=== PATIENT | female | born 2000 | race Caucasian/White ===

== ENCOUNTER 2018-04-09 11:56 | Emergency (ER) | payer BC, SELFPAY ==
[2018-04-09 12:20] VITALS: BP 128/76; PULSE 84; RESP 16; TEMP 36.6; O2SAT 100
[2018-04-09 12:38] LABS: Bilirubin Negative (Negative); Blood Small (Negative); Clarity Clear; Glucose Negative (Negative); Ketones Negative (Negative); Leukocyte Esterase Moderate (Negative); Nitrite Negative (Negative); Urobilinogen 0.2 EU/dL (Up TO 0.2)
[2018-04-09 12:55] LABS: Bacteria Few HPF (Negative); Crystals Negative HPF (Negative); Epithelial Cells Few HPF (Negative); Mucus Negative (Negative)
[2018-04-09 12:56] LABS: C & S Indicated? Yes; WBC >50 HPF (0-5)
--- NOTE | 2018-04-09 13:16 | ED.GENADUL_ITS ---
Discharge Plan Disposition Patient Disposition: HOME Condition: Good Discharge Details Chief Complaint: Urinary Clinical Impression: UTI (urinary tract infection) Primary Care Provider: Jamila,Local ED Provider: John Beck Home Meds and New Rx's Prescriptions: New cephalexin [Keflex] 500 mg capsule 500 mg PO BID 7 Days Qty: 14 RF: 0 No Action Azo Urinary Pain Relief 97.5 mg Tablet RF: 0 naproxen sodium [Aleve] 220 mg Capsule 220 mg PO BID-TID PRNRF: 0 Azo Urinary Tract Health 95 mg/250 mg-30 mg-15 mg Tablet RF: 0 Discharge Instructions Instructions: Urinary Tract Infection in Women (ED) Additional Instructions: Please take medication as directed. If you notice any worsening of your symptoms, or any new symptoms such as vomiting, diarrhea, fever, chills, shortness of breath, chest pain, numbness, weakness, or fainting , please return immediately to the emergency department for reevaluation. Please follow up with your primary care provider as soon as possible for reassessment and reevaluation. As always, it was a pleasure participating in your medical care today. Medical Decision Making This is a very pleasant 17-year-old female who presents for evaluation of 7 days of burning, and increase in urinary frequency. She states that her signs and symptoms feel like her previous UTIs. Clinical exam shows no signs of concerning abdominal pain or tenderness, no evidence of an acute surgical abdomen. No clinical evidence of pyelonephritis with no fever, tachycardia, or flank pain or tenderness. Urinalysis shows evidence of UTI. We will give Keflex she has no antibiotic allergies. We discussed red flags which return the importance of close follow-up. We will also give Lidoderm patch prescription on an outpatient basis for chronic lower back pain, which on my clinical exam is unrelated to her urinary symptoms. No signs of cauda equina syndrome or other abnormalities. No clinical evidence requiring or necessitating imaging at this time with no history of trauma or other abnormality. No history of IV or illicit drug use. I have extensively reviewed the treatment plan and discharge instructions with the patient. I have addressed all patient concerns at this time. The patient was made aware of what symptoms to monitor for that would warrant a return to the emergency department. Discussed the plan with the patient, they demonstrate verbal understanding and agreement with our assessment and plan at this time. HPI General Date/Time Provider Initiated Documentation: 04/09/18 12:29 . HPI Narrative: This is a very pleasant 17-year-old female with no significant past medical history who presents today for evaluation of dysuria for the last week. She has burning and increased urinary frequency. She denies any flank pain or tenderness, she denies any hematuria. She denies any history of STDs or vaginal discharge. She denies any concerning red flags of fever or chills. She has had a urinary tract infections before she states that this feels just like this. She denies any history of kidney stones she has not been on any antibiotics recently. She has no history of diabetes she does admit to a separate unrelated issue of chronic lower back pain, but states that this is going on well before any of your urinary issues. She denies any numbness tingling or weakness of her lower extremities. She denies any bowel or bladder incontinence. She has no other complaints modifying factors at this time. She denies any IV illicit drug use or pertinent family history. Related Data Home Medications Medication Instructions Recorded Confirmed cephalexin [Keflex] 500 mg PO BID 7 Days #14 cap 04/09/18 naproxen sodium [Aleve] 220 mg PO BID-TID PRN 04/09/18 04/09/18 [id number] 04/09/18 [Azo Urinary Tract Health] phenazopyridine [Azo Urinary Pain 04/09/18 Relief] Previous Rx's Medication Instructions Recorded cephalexin [Keflex] 500 mg PO BID 7 Days #14 cap 04/09/18 Allergies Allergy/AdvReac Type Severity Reaction Status Date / Time No Known Allergies Allergy Unverified 04/09/18 12:19 General Stated Complaint: Urinary KARIN: 4 Review of Systems Review of Systems All systems reviewed & are unremarkable except as noted in HPI and below Exam Narrative Exam Narrative: 1.Const: Well-nourished, Well-developed, appearing stated age 2.Eyes: PERRL, no conjunctival injection, and symmetrical lids. 3.ENT: Atraumatic external nose and ears. Moist MM. Neck: Symmetric, trachea midline, No thyromegaly. 4.CVS: +S1/S2, No murmurs or gallops. Peripheral pulses 2+ and equal in all extremities. Brisk capillary refill in all extremities. 5.RESP: Unlabored respiratory effort. Clear to auscultation bilaterally. No wheezes rales or rhonchi 6.GI: Soft, Nontender/Nondistended, No hepatosplenomegaly. No guarding or rebound. No pain at McBurney's point, negative Last sign, no significant supr apubic tenderness. No flank or CVA tenderness on percussion. No midline thoracic lumbar or cervical spine tenderness. 7.MSK: Normocephalic/Atraumatic, Extremities w/o deformity or ttp No cyanosis or clubbing, Normal movement of all extremities. No midline tenderness to palpation over the CTLS spine. Normal ROM in flexion, extension, side bend, and rotation. Patient has +5 out of 5 strength in the lower extremities in dorsiflexion and plantarflexion, knee flexion and extension, hip flexion and extension. There is +2 over 2 dorsalis pedis pulses bilaterally. There is normal sensation to the skin with light touch at the foot, knee, and hip. Normal saddle sensation. Good sensation over the deep sural nerve area bilaterally. Rectal exam deferred. Reflexes are +2 over 4 in the patellar reflex bilaterally. +5 out of 5 strength in the medial, ulnar, radial nerve distribution bilaterally in the hands as well as intact light touch sensation to these dermatomes on the hands 8.Skin: Warm, Dry. No rashes or lesions. 9.Neuro: manager enterprise II-XII grossly intact. Sensation grossly intact, no focal neurologic deficits. 10.Psych: (AAO) x3. Appropriate mood and affect Course Vital Signs Temperature 36.6 C 04/09/18 12:20 Pulse 84 04/09/18 12:20 Respiratory Rate 16 04/09/18 12:20 Blood Pressure 128/76 04/09/18 12:20 Pulse Oximetry 100 04/09/18 12:20 Temperature 36.6 C 04/09/18 12:20 Temperature Source Tympanic 04/09/18 12:20 Pulse 84 04/09/18 12:20 Respiratory Rate 16 04/09/18 12:20 Respiratory Effort Non-Labored 04/09/18 12:24 Blood Pressure 128/76 04/09/18 12:20 Blood Pressure Position Sitting 04/09/18 12:20 Pulse Oximetry 100 04/09/18 12:20 Oxygen Delivery Method Room Air 04/09/18 12:20 Oxygen Flow Rate 0 04/09/18 12:20 Pain Level 0 04/09/18 12:26 Lab/Test Results Lab/Test Results: 04/09/18 12:30 Urine - Reflex from Ua Urine Culture - Pending Laboratory Tests Range/Units 04/09/18 12:30 Urine Color (Yellow) Yellow Urine Clarity Clear Urine pH (5-8) 7.0 Ur Specific [place] (1.005-1.025) 1.010 Urine Protein (Negative) mg/dL Negative Urine Ketones (Negative) mg/dL Negative Urine Blood (Negative) Small H Urine Nitrite (Negative) Negative Urine Bilirubin (Negative) Negative Urine Urobilinogen (Up TO 0.2) EU/dL 0.2 Ur Leukocyte Esterase (Negative) Moderate H Urine RBC Not Applicable Urine WBC (0-5) HPF >50 Ur Epithelial Cells (Negative) HPF Few Urine Crystals (Negative) HPF Negative Urine Bacteria (Negative) HPF Few Urine Mucus (Negative) Negative Ur Culture Indicated? Yes Urine Glucose (Negative) mg/dL Negative POC- Test(urine) Negative
== END 2018-04-09 13:23 | disposition home or self-care (01) ==
PROVIDERS: Emergency Provider Student in an Organized Health Care Education/Training Program
DX: N39.0 Urinary tract infection, site not specified (principal); B95.7 Other staphylococcus as the cause of diseases classified elsewhere; Z87.440 Personal history of urinary (tract) infections
CPT/HCPCS: 87077; 99283; 81003; 81015; 87086

== ENCOUNTER 2018-06-09 12:35 | Emergency (ER) | payer BC, SELFPAY ==
[2018-06-09 12:44] VITALS: BP 123/67; PULSE 79; RESP 16; TEMP 36.7; O2SAT 98
--- NOTE | 2018-06-09 12:55 | W.ED.GENAD ---
Discharge Plan Disposition Patient Disposition: HOME Condition: Fair Discharge Details Chief Complaint: RespSymp Clinical Impression: URI (upper respiratory infection) Primary Care Provider: Jamila,Local ED Provider: Cherelle Felix Home Meds and New Rx's Prescriptions: Continued acetaminophen [Acetaminophen Extra Strength] 500 mg Tablet 1,000 mg PO QID PRNRF: 0 ibuprofen [Ibuprofen IB] 200 mg Tablet 400 mg PO TID-QID PRNRF: 0 naproxen sodium [Aleve] 220 mg Capsule 220 mg PO BID-TID PRNRF: 0 Azo Urinary Tract Health 95 mg/250 mg-30 mg-15 mg Tablet RF: 0 Discharge Instructions Instructions: Upper Respiratory Infection (ED) Additional Instructions: Encourage hydration. Tylenol and ibuprofen as needed for discomfort. Please seek care urgently once again with any new or worsening symptoms. Otherwise, please follow-up with primary care. billing and insurance coordinator will be in touch regarding establishment of primary care physician. Stand Alone Forms: Work Release Discharge Data Discharge Date/Time-TO BE ENTERED AT DEPARTURE: 06/09/18 14:10 Medical Decision Making Patient is a 17-year-old female presenting today with chief complaint of sore throat, cough, congestion. Primarily concerned that she has mononucleosis as her boyfriend was diagnosed with this last week after having a sore throat. She also reports she has had strep on multiple occasions and is questioning if it may also be this. Denies any recent fevers. States that she has been fatigued. Denies any nausea, vomiting or diarrhea. No abdominal pain. On exam, she appears to be resting comfortably. No splenomegaly. The posterior oropharynx is mildly erythematous but no swelling or exudate is noted. Rapid strep testing and Monospot is negative. Discussed these findings with the patient. Advised that she likely has a viral URI. I encouraged hydration. Tylenol and/or ibuprofen as needed for discomfort. Patient does not have a primary care locally and I have asked her youth care professional to help with establishment of primary care physician. I advised that she seek care urgently once again with any new or worsening symptoms. All of her questions and concerns were addressed and she is in agreement this plan HPI General Mode of arrival: ambulatory. Date/Time Provider Initiated Documentation: 06/09/18 12:55. Limitations to Documentation: no limitations. Information obtained by: patient and RN notes reviewed. History of Present Illness 17 year old F presents to the emergency department with the chief complaint of sore throat, cough, described as moderate, Quality is described as burning, Patient reports no radiation. Patient started experiencing this day(s) and it has been constant. No relieving factors improve symptom(s), No exacerbating factors reported . Patient notes cough; denies chest pain, diaphoresis, fever/chills, headaches, loss of appetite, nausea/vomiting, rash and shortness of breath. Patient did receive the following treatments prior to arrival, none Related Data Home Medications Medication Instructions Recorded Confirmed Azo Urinary Tract Health 04/09/18 naproxen sodium [Aleve] 220 mg PO BID-TID PRN 04/09/18 06/09/18 acetaminophen [Acetaminophen Extra 1,000 mg PO QID PRN 06/09/18 06/09/18 Strength] ibuprofen [Ibuprofen IB] 400 mg PO TID-QID PRN 06/09/18 06/09/18 Allergies Allergy/AdvReac Type Severity Reaction Status Date / Time No Known Allergies Allergy Unverified 06/09/18 12:51 General Stated Complaint: RespSymp KARIN: 4 Review of Systems Constitutional Reports as per HPI, Denies chills, Reports fatigue, Denies fever(s), Denies headache(s) and Denies poor appetite Eyes Reports as per HPI, Denies eye discharge and Denies irritation ENT Reports as per HPI, Denies otalgia, Denies headache(s), Reports nasal congestion, Reports nasal discharge, Reports post nasal drip and Reports sore throat Cardiovascular Reports as per HPI, Denies chest pain and Denies dyspnea Respiratory Reports as per HPI, Reports cough, Denies hemoptysis, Denies dyspnea, Denies stridor and Denies wheezing Gastrointestinal Reports as per HPI, Denies abdominal pain, Denies change in bowel habits, Denies nausea and Denies vomiting Integumentary/Breasts Reports as per HPI and Denies rash Neurologic Reports as per HPI and Denies headache(s) Endocrine Reports fatigue Allergic/Immunologic Denies wheezing [facility] Social History Smoking/Tobacco Use Status: Current every day Tobacco Type: e-cigarettes Drug use: Daily Substance use type: marijuana Do you feel safe at home: Yes Do you feel safe in your relationship?: Yes Exam Const General: cooperative, healthy appearing, comfortable, no acute distress, well developed and well groomed Nutritional Appearance: average body habitus and well nourished Orientation: alert and awake [facility] Head: normal to inspection, normocephalic and atraumatic Ears: hearing grossly normal bilaterally, external ears normal and TM's normal bilaterally General nose exam: external nose normal and nares normal Face and sinus: normal facial exam, sinuses nontender and face symmetric Mouth: oral mucosae normal, lip normal, tongue normal, oropharynx normal, moist mucous membranes and no trismus Teeth and gingiva: dentition normal Throat: tonsils normal, uvula midline and posterior oropharynx abnormal erythema Eyes General: appearance normal, both eyes and all related structures Neck Neck: normal visual inspection, full ROM, no lymphadenopathy and no meningeal signs Resp Effort & Inspection: normal respiratory effort, able to speak in complete sentences and no respiratory distress Auscultation: clear to auscultation bilaterally, no rales, no rhonchi and no wheezes Cardio Rate: regular rate Rhythm: regular rhythm Heart Sounds: S1 normal and S2 normal Skin General skin exam: no rashes or lesions noted Neuro General: alert and awake Cognition: normal cognition Speech: speech normal Gait: normal gait Psych Appearance: grossly normal and well kempt Mental Status: mental status grossly normal Speech and Movement: speech and movement normal Course Vital Signs Temperature 36.7 C 06/09/18 12:44 Pulse 79 06/09/18 12:44 Respiratory Rate 16 06/09/18 12:44 Blood Pressure 123/67 06/09/18 12:44 Pulse Oximetry 98 06/09/18 12:44 Temperature 36.7 C 06/09/18 12:44 Temperature Source Temporal Artery Scan 06/09/18 12:44 Pulse 79 06/09/18 12:44 Respiratory Rate 16 06/09/18 12:44 Respiratory Effort Non-Labored 06/09/18 12:50 Blood Pressure 123/67 06/09/18 12:44 Blood Pressure Position Sitting 06/09/18 12:44 Pulse Oximetry 98 06/09/18 12:44 Oxygen Delivery Method Room Air 06/09/18 12:44 Oxygen Flow Rate 0 06/09/18 12:44 Pain Level 0 06/09/18 12:44
[2018-06-09 13:45] LABS: Mono Screening Negative (Negative)
--- NOTE | 2018-06-09 13:59 | ED.GENADUL_ITS ---
Discharge Plan Disposition Patient Disposition: HOME Condition: Fair Discharge Details Chief Complaint: RespSymp Clinical Impression: URI (upper respiratory infection) Primary Care Provider: Jamila,Local ED Provider: Cherelle Felix Home Meds and New Rx's Prescriptions: Continued acetaminophen [Acetaminophen Extra Strength] 500 mg Tablet 1,000 mg PO QID PRNRF: 0 ibuprofen [Ibuprofen IB] 200 mg Tablet 400 mg PO TID-QID PRNRF: 0 naproxen sodium [Aleve] 220 mg Capsule 220 mg PO BID-TID PRNRF: 0 Azo Urinary Tract Health 95 mg/250 mg-30 mg-15 mg Tablet RF: 0 Discharge Instructions Instructions: Upper Respiratory Infection (ED) Additional Instructions: Encourage hydration. Tylenol and ibuprofen as needed for discomfort. Please seek care urgently once again with any new or worsening symptoms. Otherwise, please follow-up with primary care. marketing proposal coordinator will be in touch regarding establishment of primary care physician. Stand Alone Forms: Work Release Discharge Data Discharge Date/Time-TO BE ENTERED AT DEPARTURE: 06/09/18 14:10 Medical Decision Making Patient is a 17-year-old female presenting today with chief complaint of sore throat, cough, congestion. Primarily concerned that she has mononucleosis as her boyfriend was diagnosed with this last week after having a sore throat. She also reports she has had strep on multiple occasions and is questioning if it may also be this. Denies any recent fevers. States that she has been fatigued. Denies any nausea, vomiting or diarrhea. No abdominal pain. On exam, she appears to be resting comfortably. No splenomegaly. The posterior oropharynx is mildly erythematous but no swelling or exudate is noted. Rapid strep testing and Monospot is negative. Discussed these findings with the patient. Advised that she likely has a viral URI. I encouraged hydration. Tylenol and/or ibuprofen as needed for discomfort. Patient does not have a primary care locally and I have asked her floor care technician to help with establishment of primary care physician. I advised that she seek care urgently once again with any new or worsening symptoms. All of her questions and concerns were addressed and she is in agreement this plan HPI General Mode of arrival: ambulatory . Date/Time Provider Initiated Documentation: 06/09/18 12:55 . Limitations to Documentation: no limitations . Information obtained by: patient and RN notes reviewed . History of Present Illness 17 year old F presents to the emergency department with the chief complaint of sore throat, cough, described as moderate, Quality is described as burning, Patient reports no radiation. Patient started experiencing this day(s) and it has been constant. No relieving factors improve symptom(s), No exacerbating factors reported . Patient notes cough; denies chest pain, diaphoresis, fever/chills, headaches, loss of appetite, nausea/vomiting, rash and shortness of breath. Patient did receive the following treatments prior to arrival, none Related Data Home Medications Medication Instructions Recorded Confirmed Azo Urinary Tract Health 04/09/18 naproxen sodium [Aleve] 220 mg PO BID-TID PRN 04/09/18 06/09/18 acetaminophen [Acetaminophen Extra 1,000 mg PO QID PRN 06/09/18 06/09/18 Strength] ibuprofen [Ibuprofen IB] 400 mg PO TID-QID PRN 06/09/18 06/09/18 Allergies Allergy/AdvReac Type Severity Reaction Status Date / Time No Known Allergies Allergy Unverified 06/09/18 12:51 General Stated Complaint: RespSymp KARIN: 4 Review of Systems Constitutional Reports as per HPI, Denies chills, Reports fatigue, Denies fever(s), Denies headache(s) and Denies poor appetite Eyes Reports as per HPI, Denies eye discharge and Denies irritation ENT Reports as per HPI, Denies otalgia, Denies headache(s), Reports nasal congestion, Reports nasal discharge, Reports post nasal drip and Reports sore throat Cardiovascular Reports as per HPI, Denies chest pain and Denies dyspnea Respiratory Reports as per HPI, Reports cough, Denies hemoptysis, Denies dyspnea, Denies stridor and Denies wheezing Gastrointestinal Reports as per HPI, Denies abdominal pain, Denies change in bowel habits, Denies nausea and Denies vomiting Integumentary/Breasts Reports as per HPI and Denies rash Neurologic Reports as per HPI and Denies headache(s) Endocrine Reports fatigue Allergic/Immunologic Denies wheezing [facility] Social History Smoking/Tobacco Use Status: Current every day Tobacco Type: e-cigarettes Drug use: Daily Substance use type: marijuana Do you feel safe at home: Yes Do you feel safe in your relationship?: Yes Exam Const General: cooperative, healthy appearing, comfortable, no acute distress, well developed and well groomed Nutritional Appearance: average body habitus and well nourished Orientation: alert and awake [facility] Head: normal to inspection, normocephalic and atraumatic Ears: hearing grossly normal bilaterally, external ears normal and TM's normal bilaterally General nose exam: external nose normal and nares normal Face and sinus: normal facial exam, sinuses nontender and face symmetric Mouth: oral mucosae normal, lip normal, tongue normal, oropharynx normal, moist mucous membranes and no trismus Teeth and gingiva: dentition normal Throat: tonsils normal, uvula midline and posterior oropharynx abnormal erythema Eyes General: appearance normal, both eyes and all related structures Neck Neck: normal visual inspection, full ROM, no lymphadenopathy and no meningeal signs Resp Effort & Inspection: normal respiratory effort, able to speak in complete sentences and no respiratory distress Auscultation: clear to auscultation bilaterally, no rales, no rhonchi and no wheezes Cardio Rate: regular rate Rhythm: regular rhythm Heart Sounds: S1 normal and S2 normal Skin General skin exam: no rashes or lesions noted Neuro General: alert and awake Cognition: normal cognition Speech: speech normal Gait: normal gait Psych Appearance: grossly normal and well kempt Mental Status: mental status grossly normal Speech and Movement: speech and movement normal Course Vital Signs Temperature 36.7 C 06/09/18 12:44 Pulse 79 06/09/18 12:44 Respiratory Rate 16 06/09/18 12:44 Blood Pressure 123/67 06/09/18 12:44 Pulse Oximetry 98 06/09/18 12:44 Temperature 36.7 C 06/09/18 12:44 Temperature Source Temporal Artery Scan 06/09/18 12:44 Pulse 79 06/09/18 12:44 Respiratory Rate 16 06/09/18 12:44 Respiratory Effort Non-Labored 06/09/18 12:50 Blood Pressure 123/67 06/09/18 12:44 Blood Pressure Position Sitting 06/09/18 12:44 Pulse Oximetry 98 06/09/18 12:44 Oxygen Delivery Method Room Air 06/09/18 12:44 Oxygen Flow Rate 0 06/09/18 12:44 Pain Level 0 06/09/18 12:44
--- NOTE | 2018-06-10 09:53 | PDOC.ERCMPRO ---
Care Management Progress Note 06/10-Cherelle COOL requested assistance with a PCP f/u, routine. NO ED f/u needed. Reviewed chart and it states that she does not have a local provider. Discussed with Karlie in access to see if it was documented as to who her provider might be but there was nothing in chart. Karlie even looked on the BS sight to see if any was listed for which there was not. This CM called Haley and left a message and contact information requesting a call back.
== END 2018-06-09 14:10 | disposition home or self-care (01) ==
PROVIDERS: Emergency Provider Physician Assistant
DX: J06.9 Acute upper respiratory infection, unspecified (principal)
CPT/HCPCS: 36415; 87880; 99283; 86308; 87081; 99282

== ENCOUNTER 2019-07-31 16:30 | Outpatient (REF) | payer SELFPAY ==
[2019-08-02 03:09] LABS: COVID-19 RT-PCR UVMMC Result Negative (Negative)
== END 2019-07-31 16:50 ==
LOC: NCHCN 16:30
PROVIDERS: PCP Nurse Practitioner Family; Visit Provider Nurse Practitioner Family
DX: Z11.59 Encounter for screening for other viral diseases (principal)
CPT/HCPCS: U0003